=== PATIENT | female | born 1955 | race Caucasian/White ===

== ENCOUNTER → 2016-05-06 | Outpatient (CLI) | payer OTHER ==
[~2016-05-06] MED LIST: ALDACTONE25 MG PO; ALDACTONE50 MG PO; ALLER-TEC10 MG PO; ANASTROZOLE1 MG PO; BACTRIM 400-801 EACH PO; BUMEX; BYDUREON2 MG SQ; CALCIUM CITRAT1 EAC4 PO; CALCIUM500 MG PO; CENTRUM COMPLE1 EACH PO; CHEMO DRUG; CHRONULAC20 GM/30 M PO; CORGARD 40MG TA40 MG PO; DRISDOL50000 UNIT PO; GLUCOPHAGE1000 MG PO; HABITROL 14 MG P1 EA TD; HABITROL 14 MG P1 EA TOP; HUMALOG100 UNIT/1 SC; HUMALOG100 UNIT/1 SQ; INVOKANA PO; INVOKANA300 MG PO; K-DUR TAB 10 M10 MEQ PO; KRISTALOSE10 GM PO; LANTUS100 UNIT/1 SC; LASIX PO; LASIX20 MG PO; LASIX40 MG PO; LEVAQUIN500 MG PO; LIPITOR TAB 2020 MG PO; LISINOPRIL PO; MACROBID 100 M100 MG PO; METHOCARBAMOL500 MG PO; NADOLOL20 MG PO; NADOLOL40 MG PO; NEURONTIN 400400 MG PO; NEURONTIN800 MG PO; NORCO 7.5-3251 EACH PO; NOVOLOG100 UNIT/1 SC; OMEPRAZOLE20 MG PO; POTASS CIT-SOD473 ML PO; POTASSIUM CHLO10 ME2 PO; POTASSIUM CHLO10 MEQ PO; POTASSIUM PO; PRILOSEC OTC20 MG PO; PROTONIX40 MG PO; REQUIP2 MG PO; ROBAXIN500 MG PO; ROPINIROLE HCL2 MG PO; VENTOLIN/PROVE0.5 ML INH; VITAMIN B-1000 MCG/M IM; WOMEN'S DAILY1 EACH PO; XIFAXAN550 MG PO; ZESTRIL2.5 MG PO; ZESTRIL40 MG PO; ZOFRAN ODT8 MG PO; ZOFRAN8 MG PO; ZYRTEC10 MG PO
== END ==
LOC: MAMO 14:40
DX: Z12.31 Encounter for screening mammogram for malignant neoplasm of breast (principal)
CPT/HCPCS: G0202

== ENCOUNTER → 2016-06-03 | Outpatient (CLI) | payer OTHER ==
[2016-06-03 12:53] LABS: HEMOGLOBIN 9.5 gm/dl (12.3-15.3); RED BLOOD COUNT 3.84 M/UL (4.00-5.10); WHITE BLOOD COUNT 5.1 K/UL (4.5-11.0)
== END ==
LOC: LAB 12:12
PROVIDERS: Internal Medicine
DX: R18.8 Other ascites (principal)
CPT/HCPCS: 36415; 80053; 82105; 85027; 85610

== ENCOUNTER → 2016-06-12 | Outpatient (CLI) | payer OTHER | LOC: LAB 15:44 | PROVIDERS: Internal Medicine | DX: C22.9 Malignant neoplasm of liver, not specified as primary or secondary (principal) | CPT/HCPCS: 36415; 80053 ==

== ENCOUNTER 2016-07-05 18:39 | Inpatient (IN) | payer OTHER ==
[~2016-07-05] VITALS: Ht 157.5 cm; Wt 75.3 kg
[~2016-07-05 18:39] MED LIST changes: -ALDACTONE50 MG PO; -ALLER-TEC10 MG PO; -ANASTROZOLE1 MG PO; -BACTRIM 400-801 EACH PO; -BYDUREON2 MG SQ; -CORGARD 40MG TA40 MG PO; -HABITROL 14 MG P1 EA TD; -HUMALOG100 UNIT/1 SQ; -INVOKANA300 MG PO; -KRISTALOSE10 GM PO; -LASIX20 MG PO; -LEVAQUIN500 MG PO; -LIPITOR TAB 2020 MG PO; -MACROBID 100 M100 MG PO; -METHOCARBAMOL500 MG PO; -NADOLOL20 MG PO; -POTASS CIT-SOD473 ML PO; -POTASSIUM CHLO10 ME2 PO; -POTASSIUM CHLO10 MEQ PO; -PRILOSEC OTC20 MG PO; -PROTONIX40 MG PO; -ROPINIROLE HCL2 MG PO; -VENTOLIN/PROVE0.5 ML INH; -VITAMIN B-1000 MCG/M IM; -WOMEN'S DAILY1 EACH PO; -ZESTRIL2.5 MG PO; -ZOFRAN ODT8 MG PO; -ZOFRAN8 MG PO; -ZYRTEC10 MG PO
[2016-07-05 20:24] LABS: HEMOGLOBIN 8.8 gm/dl (12.3-15.3); RED BLOOD COUNT 3.5 M/UL (4.00-5.10); WHITE BLOOD COUNT 4.1 K/UL (4.5-11.0)
[2016-07-06] MEDS ORDERED: NADOLOL20 MG PO (01:48)
[2016-07-06] MEDS ORDERED: LASIX40 MG PO (01:48)
[2016-07-06] MEDS ORDERED: METHOCARBAMOL500 MG PO (01:51)
[2016-07-06] MEDS ORDERED: WOMEN'S DAILY1 EACH PO (01:52)
[2016-07-06] MEDS ORDERED: POTASSIUM CHLO10 MEQ PO (01:54)
[2016-07-06 05:07] LABS: HEMOGLOBIN 8.6 gm/dl (12.3-15.3); RED BLOOD COUNT 3.42 M/UL (4.00-5.10); WHITE BLOOD COUNT 3.9 K/UL (4.5-11.0)
[2016-07-07 07:35] LABS: HEMOGLOBIN 9.1 gm/dl (12.3-15.3); RED BLOOD COUNT 3.66 M/UL (4.00-5.10); WHITE BLOOD COUNT 5.2 K/UL (4.5-11.0)
[2016-07-07] MEDS ORDERED: HABITROL 14 MG P1 EA TD (16:18)
--- NOTE | 2016-07-07 16:45 | NUR ---
Discharge teaching and prescription was given with a verbal understanding by the patient. IV D/C'd; 2x2 held until bleeding stoped and then taped. Patient left unit in wheel chair taking all belongings.
[2016-08-15] MEDS ORDERED: ZESTRIL2.5 MG PO (22:12)
[2016-08-15] MEDS ORDERED: GLUCOPHAGE1000 MG PO (22:13)
[2016-09-22] MEDS ORDERED: CORGARD 40MG TA40 MG PO (04:40)
[2016-09-25] MEDS ORDERED: VITAMIN B-1000 MCG/M IM (11:39)
[2016-09-25] MEDS ORDERED: BYDUREON2 MG SQ (11:40)
[2016-09-25] MEDS ORDERED: LEVAQUIN500 MG PO (11:40)
[2016-09-25] MEDS ORDERED: ZOFRAN ODT8 MG PO (11:42)
[2016-09-25] MEDS ORDERED: ALLER-TEC10 MG PO (11:42)
[2016-09-25] MEDS ORDERED: VENTOLIN/PROVE0.5 ML INH (11:42)
[2016-09-25] MEDS ORDERED: LIPITOR TAB 2020 MG PO (11:42)
[2016-09-25] MEDS ORDERED: LANTUS100 UNIT/1 SC (11:48)
[2016-09-25] MEDS ORDERED: ANASTROZOLE1 MG PO (11:52)
[2016-09-25] MEDS ORDERED: MACROBID 100 M100 MG PO (13:02)
[2016-10-08] MEDS ORDERED: HUMALOG100 UNIT/1 SQ (04:42)
[2016-10-08] MEDS ORDERED: ANASTROZOLE1 MG PO (04:44)
[2016-10-08] MEDS ORDERED: LANTUS100 UNIT/1 SC (04:45)
[2016-10-08] MEDS ORDERED: ZYRTEC10 MG PO (04:46)
[2016-10-08] MEDS ORDERED: VITAMIN B-1000 MCG/M IM (04:47)
[2016-10-08] MEDS ORDERED: LASIX20 MG PO (04:47)
[2016-10-08] MEDS ORDERED: ZOFRAN8 MG PO (04:48)
[2016-10-08] MEDS ORDERED: ALDACTONE50 MG PO (04:48)
[2016-10-08] MEDS ORDERED: ROBAXIN500 MG PO (04:48)
[2016-10-08] MEDS ORDERED: ROPINIROLE HCL2 MG PO (04:49)
[2016-10-08] MEDS ORDERED: POTASSIUM CHLO10 ME2 PO (04:49)
[2016-10-08] MEDS ORDERED: PRILOSEC OTC20 MG PO (04:50)
[2016-10-08] MEDS ORDERED: XIFAXAN550 MG PO (04:50)
[2016-10-08] MEDS ORDERED: LIPITOR TAB 2020 MG PO (04:50)
[2016-10-08] MEDS ORDERED: NADOLOL20 MG PO (04:50)
[2016-10-12] MEDS ORDERED: KRISTALOSE10 GM PO (16:35)
[2016-10-12] MEDS ORDERED: BACTRIM 400-801 EACH PO (16:35)
[2016-10-22] MEDS ORDERED: INVOKANA300 MG PO (22:36)
[2016-10-22] MEDS ORDERED: ALDACTONE25 MG PO (22:37)
[2016-10-22] MEDS ORDERED: NEURONTIN 400400 MG PO (22:37)
[2016-10-22] MEDS ORDERED: LASIX20 MG PO (22:37)
[2016-10-22] MEDS ORDERED: POTASS CIT-SOD473 ML PO (22:38)
[2016-10-25] MEDS ORDERED: HABITROL 14 MG P1 EA TD (12:57)
[2016-10-25] MEDS ORDERED: PROTONIX40 MG PO (12:58)
== END 2016-07-07 16:55 | disposition home or self-care (01) | DRG 442 ==
LOC: ER1 18:39 → ZEROF 23:00 → MED SURG 4 23:00
PROVIDERS: Hospitalist; Physician Assistant; ADMIT Internal Medicine
DX: K72.00 Acute and subacute hepatic failure without coma (principal); C22.0 Liver cell carcinoma; K74.69 Other cirrhosis of liver; Z91.14 Patient's other noncompliance with medication regimen; E11.9 Type 2 diabetes mellitus without complications; Z92.3 Personal history of irradiation; Z85.3 Personal history of malignant neoplasm of breast; Z88.0 Allergy status to penicillin; Z88.2 Allergy status to sulfonamides; Z79.899 Other long term (current) drug therapy; Z79.4 Long term (current) use of insulin; F17.210 Nicotine dependence, cigarettes, uncomplicated; Z90.11 Acquired absence of right breast and nipple; Z98.890 Other specified postprocedural states
CPT/HCPCS: 36415; 36600; 70450; 71010; 80048; 80053; 81001; 82140; 82550; 82553; 82803; 82962; 83605; 83735; 83874; 84100; 84484; 85025; 87040; 87077; 87086; 87186; 93005; 99285; C9113